=== PATIENT | female | born 1990 | race Hispanic/Latino ===

== ENCOUNTER 2022-08-12 17:37 | Emergency (ER) ==
[2022-08-12 18:17] LABS: Urine Blood Trace-lysed (Negative); Urine Glucose Negative (Negative); Urine Protein Negative (Negative); Urine Specific Gravity >=1.030 (1.005-1.030)
[2022-08-12] MEDS ORDERED: ONDANSETRON 4 MG/2 ML VIAL ONE (18:18)
[2022-08-12] MEDS ORDERED: FAMOTIDINE 20 MG/2 ML VIAL IV ONE (18:18)
[2022-08-12] MEDS ORDERED: NA CHLORIDE 0.9% 1,000 ML ONE (18:18)
[2022-08-12 18:48] LABS: Absolute Lymphocytes (CBC) 1.5 K/uL (0.7-4.9); Hematocrit 42.4 % (36.0-45.0); Lymphocytes % 17.3 % (15.3-44.8); MCV 87.6 fL (80-100); MPV 9.2 fL (7.6-11.3); RBC Red Blood Cell Count 4.84 M/uL (3.86-4.86)
[2022-08-12 19:05] LABS: Albumin 4.3 g/dL (3.4-5.0); Bilirubin Total 0.4 mg/dL (0.2-1.0); Potassium 3.8 mmol/L (3.5-5.1); Protein, Total 8.2 g/dL (6.4-8.2)
[2022-08-12 19:09] LABS: Urine Specific Gravity/Preg >1.030 (1.005-1.030)
[2022-08-12 19:31] LABS: SARS-COV-2 RT PCR NEGATIVE (NEGATIVE)
--- NOTE | 2022-08-12 20:03 | RAD REPORT ---
EXAM DESCRIPTION: CTAbdomen Pelvis W Contrast - 08/12/2022 7:45 pm CLINICAL HISTORY: Epigastric pain COMPARISON: No comparisons TECHNIQUE: CT of the abdomen and pelvis was performed with IV contrast. All CT scans are performed using dose optimization technique as appropriate and may include automated exposure control or mA/KV adjustment according to patient size. FINDINGS: Lower chest: No acute abnormality. Liver: No acute abnormality or suspicious lesions. Biliary: No biliary ductal dilatation. Stomach: No significant focal abnormality. Duodenum: No significant focal abnormality. Pancreas: No significant abnormality. Spleen: No significant abnormality. Adrenal: No suspicious lesions. Kidney/ureter: No hydronephrosis. No renal calculi. Retroperitoneum: No retroperitoneal adenopathy. Vascular: No aneurysm. Bowel: No significant focal abnormality. Peritoneum: No ascites or free air. Bladder: Grossly unremarkable. Reproductive: No adnexal masses. Bones: No acute fracture. Other: n/a IMPRESSION: No acute intra-abdominal or pelvic finding. Normal appendix.
--- NOTE | 2022-08-12 20:11 | ER ---
Nurse's Notes [facility] Name: Shelia Velasco Age: 32 yrs Sex: Female : 1990 Arrival Date: 08/12/2022 Time: 17:40 Bed 6 Private MD: Diagnosis: Upper abdominal pain, unspecified Presentation: 08/12 17:44 Chief complaint: Patient states: "I'm having back pain and a burning pain in my mb9 stomach. It started yesterday morning. I've been nauseous". Coronavirus screen: Vaccine status: Patient reports receiving the 2nd dose of the covid vaccine. Ebola Screen: No symptoms or risks identified at this time. Initial Sepsis Screen: Does the patient meet any 2 criteria? No. Patient's initial sepsis screen is negative. Does the patient have a suspected source of infection? No. Patient's initial sepsis screen is negative. Risk Assessment: Do you want to hurt yourself or someone else? Patient reports no desire to harm self or others. Onset of symptoms was August 11, 2022. 17:44 Method Of Arrival: Ambulatory mb9 17:44 Acuity: ED 3 mb9 Historical: - Allergies: 17:46 No Known Allergies; mb9 - Home Meds: 17:46 None [Active]; mb9 - PMHx: 17:46 None; mb9 - PSHx: 17:46 None; mb9 - Immunization history:: Adult Immunizations up to date. - Social history:: Smoking status: Patient denies any tobacco usage or history of. Screenin:29 [facility] ED Fall Risk Assessment (Adult) History of falling in the last 3 months, jl7 including since admission No falls in past 3 months (0 pts) Confusion or Disorientation No (0 pts) Intoxicated or Sedated No (0 pts) Impaired Gait No (0 pts) Mobility Assist Device Used No (0 pt) Altered Elimination No (0 pt) Score/Fall Risk Level 0 - 2 = Low Risk Oriented to surroundings, Maintained a safe environment, Educated pt \\T\\ family on fall prevention, incl call for assistance when getting out of bed, Assessed \\T\\ reinforced patient's understanding of fall precautions, Hourly rounding (assess needs \\T\\ fall precautionary measures) done. Abuse screen: Denies threats or abuse. Denies injuries from another. Nutritional screening: No deficits noted. Tuberculosis screening: No symptoms or risk factors identified. Assessment: 18:28 General: Appears in no apparent distress. uncomfortable, Behavior is calm, cooperative, jl7 appropriate for age. Pain: Complains of pain in left low back, right low back and epigastric area Pain does not radiate. Pain currently is 8 out of 10 on a pain scale. Quality of pain is described as burning, dull, Pain began 1 day ago. Is continuous, Alleviated by nothing. Noted to be resistant to movement, Also complains of no other associated symptoms. Neuro: Clemente Agitation-Sedation Scale (RASS): 0 - Alert and Calm Level of Consciousness is awake, alert, obeys commands, Oriented to person, place, time, situation, Appropriate for age. Cardiovascular: Heart tones S1 S2 present Capillary refill < 3 seconds. Respiratory: Airway is patent Trachea midline Respiratory effort is even, unlabored, Respiratory pattern is regular, symmetrical, Breath sounds are clear bilaterally. GI: Abdomen is flat, non-distended, Bowel sounds present X 4 quads. Abd is soft X 4 quads Abdomen is tender to palpation in epigastric area Reports nausea, Patient currently denies constipation, diarrhea. : No signs and/or symptoms were reported regarding the genitourinary system. EENT: No signs and/or symptoms were reported regarding the EENT system. Derm: No signs and/or symptoms reported regarding the dermatologic system. Skin is intact, Skin is pink, warm \\T\\ dry. Musculoskeletal: No signs and/or symptoms reported regarding the musculoskeletal system. Circulation, motion, and sensation intact. Capillary refill < 3 seconds, Range of motion: intact in all extremities. 20:30 Reassessment: Patient states feeling better. Patient states symptoms have improved. tw5 Vital Signs: 17:44 BP 143 / 92; Pulse 89; Resp 16; Temp 97.1; Pulse Ox 97% ; Weight 67.13 kg; Height 5 ft. mb9 1 in. (154.94 cm); Pain 8/10; 20:30 BP 113 / 94; Pulse 61; Resp 18; Pulse Ox 100% on R/A; tw5 17:44 Body Mass Index 27.96 (67.13 kg, 154.94 cm) mb9 ED Course: 17:40 Patient arrived in ED. am2 17:41 Alysa Thorne FNP is PHCP. 7 17:41 Leandro Coulter MD is Attending Physician. 7 17:46 Triage completed. mb9 17:46 Arm band placed on. mb9 18:13 Malka Ibrahim, SKYLAR is Primary Nurse. kc6 18:21 Urine collected: clean catch specimen, clear. jl7 18:27 COVID-19/FLU A+B Sent. bc6 18:27 CBC with Diff Sent. bc6 18:27 CMP Sent. bc6 18:27 Lipase Sent. bc6 18:27 Urine Microscopic Only Sent. bc6 18:27 Initial lab(s) drawn, by ct, sent to lab. COVID swab sent to lab. Inserted saline lock: bc6 20 gauge in right antecubital area, using aseptic technique. 18:30 Patient has correct armband on for positive identification. Bed in low position. Call jl7 light in reach. Side rails up X 1. Adult w/ patient. 19:05 COVID-19/FLU A+B Sent. ap3 19:47 CT Abd/Pelvis - IV Contrast Only In Process Unspecified. EDMS 20:30 No provider procedures requiring assistance completed. tw5 20:30 IV discontinued, intact, bleeding controlled, No redness/swelling at site. Pressure tw5 dressing applied. Administered Medications: 18:27 Drug: NS 0.9% 1000 ml Route: IV; Rate: 1 bolus; Site: right antecubital; jl7 18:54 Follow up: IV Status: Infusion continued kc6 18:27 Drug: Pepcid (famotidine) 20 mg Route: IVP; Site: right antecubital; jl7 18:54 Follow up: Response: No adverse reaction kc6 18:27 Drug: Zofran (Ondansetron) 4 mg Route: IVP; Site: right antecubital; jl7 18:54 Follow up: Response: No adverse reaction; Nausea is decreased kc6 Medication: 20:30 VIS not applicable for this client. tw5 Outcome: 20:10 Discharge ordered by . jh7 20:30 Discharged to home ambulatory. tw5 20:30 Condition: good 20:30 Discharge instructions given to patient, family, Instructed on discharge instructions, follow up and referral plans. medication usage, Demonstrated understanding of instructions, follow-up care, medications, Prescriptions given X 2. 20:32 Patient left the ED. tw5 Signatures: Dispatcher [employer] EDMS Keegan Lo, RN RN jl7 Alexa Morataya am2 Alexa Wild, RN RN ap3 Silvana Arndt tw5 Alysa Thorne, INDUST[employer]EN SYSTEMS DESIGNER INDUST[employer]AL [employer]EN SYSTEMS DESIGNER jh7 Malka Ibrahim RN RN kc6 Rachid, Lyn Armendariz RN RN mb9 Radha Curran 6
--- NOTE | 2022-08-12 20:11 | EDPHYS ---
Physician Documentation [facility] Name: Shelia Velasco Age: 32 yrs Sex: Female : 1990 Arrival Date: 08/12/2022 Time: 17:40 Bed 6 Private MD: DALIA Physician Leandro Coulter HPI: 08/12 17:45 This 32 yrs old Female presents to ER via Ambulatory with complaints of Back jh7 Pain, Abdominal Pain. 17:45 The patient presents with pain that is acute, with no known mechanism of injury. The jh7 symptoms are located in the lumbar area, left low back and right low back. Onset: The symptoms/episode began/occurred 2 week(s) ago. Associated signs and symptoms: Pertinent positives: abdominal pain, nausea, Pertinent negatives: chest pain, dysuria, fever, vomiting. LMP 2 weeks ago. Historical: - Allergies: 17:46 No Known Allergies; mb9 - Home Meds: 17:46 None [Active]; mb9 - PMHx: 17:46 None; mb9 - PSHx: 17:46 None; mb9 - Immunization history:: Adult Immunizations up to date. - Social history:: Smoking status: Patient denies any tobacco usage or history of. ROS: 17:45 Constitutional: Negative for fever, chills, and weight loss, Eyes: Negative for injury, jh7 pain, redness, and discharge, ENT: Negative for injury, pain, and discharge, Cardiovascular: Negative for chest pain, palpitations, and edema, Respiratory: Negative for shortness of breath, cough, wheezing, and pleuritic chest pain, MS/Extremity: Negative for injury and deformity, Skin: Negative for injury, rash, and discoloration, Neuro: Negative for headache, weakness, numbness, tingling, and seizure. 17:45 Abdomen/GI: Positive for abdominal pain, nausea, Negative for vomiting, diarrhea, constipation, black/tarry stool. 17:45 Back: Positive for flank pain, bilaterally, Negative for decreased range of motion. 17:45 All other systems are negative. Exam: 17:45 Constitutional: This is a well developed, well nourished patient who is awake, alert, jh7 and in no acute distress. Head/Face: Normocephalic, atraumatic. Eyes: Pupils equal round and reactive to light, extra-ocular motions intact. Lids and lashes normal. Conjunctiva and sclera are non-icteric and not injected. Cornea within normal limits. Periorbital areas with no swelling, redness, or edema. ENT: Nares patent. No nasal discharge, no septal abnormalities noted. Tympanic membranes are normal and external auditory canals are clear. Oropharynx with no redness, swelling, or masses, exudates, or evidence of obstruction, uvula midline. Mucous membranes moist. Neck: Trachea midline, no thyromegaly or masses palpated, and no cervical lymphadenopathy. Supple, full range of motion without nuchal rigidity, or vertebral point tenderness. No Meningismus. Cardiovascular: Regular rate and rhythm with a normal S1 and S2. No gallops, murmurs, or rubs. Normal PMI, no JVD. No pulse deficits. Respiratory: Lungs have equal breath sounds bilaterally, clear to auscultation and percussion. No rales, rhonchi or wheezes noted. No increased work of breathing, no retractions or nasal flaring. Skin: Warm, dry with normal turgor. Normal color with no rashes, no lesions, and no evidence of cellulitis. MS/ Extremity: Pulses equal, no cyanosis. Neurovascular intact. Full, normal range of motion. Neuro: Awake and alert, GCS 15, oriented to person, place, time, and situation. Normal gait. 17:45 Abdomen/GI: Inspection: abdomen appears normal, Bowel sounds: normal, Palpation: soft, mild abdominal tenderness, in the epigastric area. 17:45 Back: pain, that is mild, of the lumbar area, left low back and right low back, ROM is normal, CVA tenderness, is absent. Vital Signs: 17:44 BP 143 / 92; Pulse 89; Resp 16; Temp 97.1; Pulse Ox 97% ; Weight 67.13 kg; Height 5 ft. mb9 1 in. (154.94 cm); Pain 8/10; 20:30 BP 113 / 94; Pulse 61; Resp 18; Pulse Ox 100% on R/A; tw5 17:44 Body Mass Index 27.96 (67.13 kg, 154.94 cm) 9 MDM: 17:[address] [facility] 20:10 Differential diagnosis: Peptic ulcer, cholecystitis, gastritis, GERD, viral syndrome. [facility] Data reviewed: vital signs, nurses notes, lab test result(s), radiologic studies, CT scan. Consideration of Admission/Observation Escalation of care including admission/observation considered. Patient's vital signs remained stable, CT scan was negative, labs were normal, and patient's symptoms improved after medication. Test considered but Not performed: Ultrasound Right upper quadrant. Historians other than the Patient: Spouse/Significant Other: Patient's . Counseling: I had a detailed discussion with the patient and/or guardian regarding: the historical points, exam findings, and any diagnostic results supporting the discharge/admit diagnosis, to return to the emergency department if symptoms worsen or persist or if there are any questions or concerns that arise at home. Response to treatment: the patient's symptoms have markedly improved after treatment. ED course: Patient states that her son is sick at home as well. Believes she may have picked up a virus from him. Advised her to increase p.o. fluid intake, take medications as prescribed, and to return to the ER if she develops any new concerning symptoms.. 08/12 17:50 Order name: CBC with Diff; Complete Time: 19:00 [facility] 08/12 17:50 Order name: CMP; Complete Time: 19:10 [facility] 08/12 17:50 Order name: Lipase; Complete Time: 19:10 [facility] 08/12 17:50 Order name: COVID-19/FLU A+B; Complete Time: 19:33 [facility] 08/12 18:17 Order name: Urine Dipstick-Ancillary; Complete Time: 18:32 [facility] 08/12 17:50 Order name: IV Saline Lock; Complete Time: 18:27 [facility] 08/12 17:50 Order name: Labs collected and sent; Complete Time: 18:27 [facility] 08/12 17:50 Order name: Urine Dipstick-Ancillary (obtain specimen); Complete Time: 18:20 [facility] 08/12 18:15 Order name: CT Abd/Pelvis - IV Contrast Only; Complete Time: 20:07 [facility] 08/12 18:18 Order name: Urine --Ancillary (enter results); Complete Time: 19:10 [facility] 08/12 17:50 Order name: Urine Test (obtain specimen); Complete Time: 18:20 [facility] Administered Medications: 18:27 Drug: NS 0.9% 1000 ml Route: IV; Rate: 1 bolus; Site: right antecubital; jl7 18:54 Follow up: IV Status: Infusion continued kc6 18:27 Drug: Pepcid (famotidine) 20 mg Route: IVP; Site: right antecubital; jl7 18:54 Follow up: Response: No adverse reaction kc6 18:27 Drug: Zofran (Ondansetron) 4 mg Route: IVP; Site: right antecubital; jl7 18:54 Follow up: Response: No adverse reaction; Nausea is decreased kc6 Disposition Summary: 08/12/22 20:10 Discharge Ordered Location: Home [facility] Problem: [facility] Symptoms: have improved [facility] Condition: Stable [facility] Diagnosis - Upper abdominal pain, unspecified [facility] Followup: [facility] - With: Private Physician - When: 2 - 3 days - Reason: Recheck today's complaints Discharge Instructions: - Discharge Summary Sheet [facility] - Abdominal Pain, Adult [facility] Forms: - Medication Reconciliation Form [facility] - Thank You Letter [facility] Prescriptions: - ondansetron 4 mg Oral tablet,disintegrating - place 1 tablet by TRANSLINGUAL route 4 times per day As needed; 20 tablet; [facility] Refills: 0, Product Selection Permitted - Pepcid 20 mg Oral Tablet - take 1 tablet by ORAL route once daily for 10 days; 10 tablet; Refills: 0, [facility] Product Selection Permitted Signatures: Dispatcher [employer] Keegan Berry RN RN jl7 Alysa Thorne, MOBILE MARKETING MANAGER MOBILE MARKETING MANAGER 7 Lyn Rashid RN RN mb9 Malka Ibrahim RN kc6
[2022-08-12 21:14] VITALS: BP 113/94; O2SAT 100
== END 2022-08-12 20:32 | disposition home or self-care (01) ==
LOC: ER 17:37
DX: R10.13 Epigastric pain (principal); R11.0 Nausea; Z20.822 Contact with and (suspected) exposure to COVID-19
CPT/HCPCS: 0240U; 36415; 74177; 80053; 81003; 81025; 83690; 85025; 96374; 96375; 99284; J2405; J7030; Q9967